=== PATIENT | female | born 1955 | race Caucasian/White ===

== ENCOUNTER 2025-05-08 03:11 | Emergency (ER) | payer BC ==
[2025-05-08 03:27] LABS: BASOPHILS ABSOLUTE AUTO 0.04 K/uL (0.00-0.20); BASOPHILS PERCENT AUTO 0.7 % (0.0-1.0); EOSINOPHILS ABSOLUTE AUTO 0.10 K/uL (0.00-0.45); EOSINOPHILS PERCENT AUTO 1.7 % (0.0-6.0); IMMATURE GRAN ABSOLUTE AUTO 0.02 K/uL (0.00-0.05); IMMATURE GRAN PERCENT AUTO 0.3 % (0.0-0.4); LYMPHOCYTES ABSOLUTE AUTO 2.87 K/uL (1.00-4.80); LYMPHOCYTES PERCENT AUTO 48.9 % (24.0-44.0); MEAN PLATELET VOLUME 9.4 fL (9.4-12.3); MONOCYTES ABSOLUTE AUTO 0.61 K/uL (0.00-0.80); MONOCYTES PERCENT AUTO 10.4 % (0.0-8.0); NEUTROPHILS ABSOLUTE AUTO 2.23 K/uL (1.80-7.70); NEUTROPHILS PERCENT AUTO 38.0 % (41.0-71.0); NRBC ABSOLUTE 0.00 K/uL (0.00-0.02); NRBC PERCENT 0.0 /100WBC (0.0-0.2); PLATELET COUNT,PLT 274 K/uL (150-400); RED BLOOD CELL COUNT 4.59 M/uL (4.10-5.30); WHITE BLOOD CELL COUNT,WBC 5.87 K/uL (3.9-11.3)
[2025-05-08] MEDS: Alum Hydrox/Mag Hydrox/Simeth 15 ML, Lidocaine 2% 5 ML PO ONE (03:27)
[2025-05-08 03:52] LABS: A/G RATIO 1.2 (0.9-1.6); ALANINE AMINOTRANSFERASE,ALT 35 IU/L (14-63); ASPARTATE AMNIOTRANSFERASE,AST 24 IU/L (15-37); BILIRUBIN TOTAL 0.3 mg/dL (0.2-1.0); BLOOD UREA NITROGEN,BUN 11 mg/dL (7.0-18.0); CARBON DIOXIDE,CO2 28.4 mmol/L (21.0-32.0); CHLORIDE,CL 106 mmol/L (98-107); CREATININE 0.9 mg/dL (0.6-1.0); ESTIMATED GFR 70 mL/min (>60); GLUCOSE RANDOM 109 mg/dL (74-106); POTASSIUM,K 3.7 mmol/L (3.5-5.1); PROTEIN TOTAL,TP 7.1 g/dL (6.4-8.2); SODIUM,NA 143 mmol/L (136-145)
== END 2025-05-08 04:21 | disposition home or self-care (01) ==
LOC: MW.ED 03:11
DX: K29.70 Gastritis, unspecified, without bleeding (principal); K21.9 Gastro-esophageal reflux disease without esophagitis; Z79.899 Other long term (current) drug therapy
CPT/HCPCS: 36415; 71045; 80053; 83690; 84484; 85025; 93005; 96374; 99284; A9270; J2765; J3490; 93010; 99283

== ENCOUNTER 2025-06-04 07:28 | Day surgery (SDC) | payer BC ==
[~2025-06-04 07:28] MED LIST: Sodium Chloride 0.9% 10 ML Syringe FLUSH PRN; Sodium Chloride 0.9% 2.5 ML Syringe FLUSH PRN
[2025-06-04] MEDS: Lactated Ringers 1,000 ML IV SCH (07:52)
[2025-06-04] MEDS ORDERED: propofoL 500 MG/50 ML 50 ML ONE (08:10)
== END 2025-06-04 10:35 | disposition home or self-care (01) ==
LOC: MW.SDS 07:28
PROVIDERS: ATTEND Surgery
DX: Z12.11 Encounter for screening for malignant neoplasm of colon (principal); K57.30 Diverticulosis of large intestine without perforation or abscess without bleeding; K21.00 Gastro-esophageal reflux disease with esophagitis, without bleeding; K29.70 Gastritis, unspecified, without bleeding; K29.80 Duodenitis without bleeding; K57.90 Diverticulosis of intestine, part unspecified, without perforation or abscess without bleeding; Z83.719 Family history of colon polyps, unspecified; Z79.899 Other long term (current) drug therapy
CPT/HCPCS: 43239; 45380; J2003; J2704; J7120; 00813